=== PATIENT | female | born 1930 | race Caucasian/White ===

== ENCOUNTER 2018-08-30 16:06 | Emergency (ER) | payer MEDICARE ==
[~2018-08-30] VITALS: Ht 142.2 cm; Wt 55.3 kg
--- NOTE | 2018-08-30 16:25 | ED Abdominal Pain ---
General Chief Complaint: Abdominal/GI Problems Stated Complaint: VOMITING; ABD PAIN Source of Information: Patient, Family Exam Limitations: Other (Pt lives at [facility] [place], has some dementia, most of history obtained from daughter) History of Present Illness Date Seen by Provider: Aug 30, 2018 Time Seen by Provider: 16:10 Initial Comments The patient is a pleasant 88-year-old female who presents for evaluation of abdominal discomfort as well as nausea and vomiting which seemed to start earlier today. The patient lives at a memory care center and is a very poor story and due to her dementia. Daughter reports that the snf staff called her because she seemed very uncomfortable and was complaining of abdominal pain. She did have one episode of nausea and borderline vomiting where she spit up a little on the way to the hospital. In the past she has had a hernia repair with mesh and has had a kidney removed for renal cell carcinoma. She is joking and smiling and states that she feels fine and wants to go home. As noted be somewhat tachycardic and also has oxygen saturation of approximately 90-92% on room air. She is no history of COPD and she is denying any chest pain or shortness of breath. She has had a runny nose and cough slightly productive. She is alert, calm, and appears to be in no distress at this time. Timing/Duration: 1-3 Hours Severity/Quality: Moderate Location: Other ("lower abdomen") Radiation: No Radiation Activities at Onset: None Modifying Factors: Improves With Movement (worsens), Improves With Resting (improves) Associated Symptoms: Denies Symptoms Allergies and Home Medications Allergies Coded Allergies: No Known Drug Allergies (Unverified , 08/30/18) Patient Home Medication List Home Medication List Reviewed: Yes Review of Systems Review of Systems Constitutional: no symptoms reported EENTM: No Symptoms Reported Respiratory: No Symptoms Reported Cardiovascular: No Symptoms Reported Gastrointestinal: Abdominal Pain, Nausea, Vomiting Genitourinary: No Symptoms Reported Musculoskeletal: no symptoms reported Skin: no symptoms reported Psychiatric/Neurological: No Symptoms Reported Endocrine: No Symptoms Reported Hematologic/Lymphatic: No Symptoms Reported All Other Systems Reviewed Negative Unless Noted: Yes Past Vbkwinc-Mtnugb-Awvfeq Hx Past Med/Social Hx: Reviewed Nursing Past Med/Soc Hx Physical Exam Vital Signs Vital Signs - First Documented 08/30/18 16:10 Temp 97.7 Pulse 111 Resp 18 B/P (MAP) 144/97 (113) Pulse Ox 92 O2 Delivery Room Air Capillary Refill : Height/Weight/BMI Height: '" Weight: lbs. oz. kg; BMI Method: General Appearance: WD/WN, no apparent distress HEENT: PERRL/EOMI, normal ENT inspection, TMs normal, pharynx normal Neck: non-tender, full range of motion, supple, normal inspection Respiratory: chest non-tender, lungs clear, normal breath sounds, no respiratory distress, no accessory muscle use Cardiovascular: no JVD, no murmur, tachycardia Gastrointestinal: normal bowel sounds, non tender, soft, no organomegaly, no pulsatile mass, tenderness (mild periumbilical/suprapubic ttp, no pulsatile mass, no guarding, soft, no rigidity) Extremities: non-tender, normal inspection, no pedal edema Back: normal inspection, no CVA tenderness Pelvic: normal external exam, normal adnexa Neurologic/Psychiatric: alert, normal mood/affect Skin: normal color, warm/dry Lymphatic: no adenopathy Progress/Results/Core Measures Results/Orders Lab Results Laboratory Tests Test 08/30/18 16:19 08/30/18 16:33 Range/Units White Blood Count 9.2 4.3-11.0 10^3/uL Red Blood Count 4.42 4.35-5.85 10^6/uL Hemoglobin 14.2 11.5-16.0 G/DL Hematocrit 43 35-52 % Mean Corpuscular Volume 97 80-99 FL Mean Corpuscular Hemoglobin 32 25-34 PG Mean Corpuscular Hemoglobin Concent 33 32-36 G/DL Red Cell Distribution Width 22.8 H 10.0-14.5 % Platelet Count 500 H 130-400 10^3/uL Mean Platelet Volume 9.4 7.4-10.4 FL Neutrophils (%) (Auto) 72 42-75 % Lymphocytes (%) (Auto) 20 12-44 % Monocytes (%) (Auto) 6 0-12 % Eosinophils (%) (Auto) 0 0-10 % Basophils (%) (Auto) 1 0-10 % Neutrophils # (Auto) 66.0 H 1.8-7.8 X 10^3 Lymphocytes # (Auto) 1.9 1.0-4.0 X 10^3 Monocytes # (Auto) 0.6 0.0-1.0 X 10^3 Eosinophils # (Auto) 0.0 0.0-0.3 10^3/uL Basophils # (Auto) 0.1 0.0-0.1 10^3/uL Sodium Level 146 H 135-145 MMOL/L Potassium Level 3.1 L 3.6-5.0 MMOL/L Chloride Level 104 98-107 MMOL/L Carbon Dioxide Level 21 21-32 MMOL/L Anion Gap 21 H 5-14 MMOL/L Blood Urea Nitrogen 18 7-18 MG/DL Creatinine 0.81 0.60-1.30 MG/DL Estimat Glomerular Filtration Rate > 60 BUN/Creatinine Ratio 22 Glucose Level 137 H 70-105 MG/DL Calcium Level 9.5 8.5-10.1 MG/DL Corrected Calcium 9.3 8.5-10.1 MG/DL Total Bilirubin 0.8 0.1-1.0 MG/DL Aspartate Amino Transf (AST/SGOT) 15 5-34 U/L Alanine Aminotransferase (ALT/SGPT) 8 0-55 U/L Alkaline Phosphatase 130 40-136 U/L Troponin I < 0.30 <0.30 NG/ML Pro-B-Type Natriuretic Peptide 708.6 H <75.0 PG/ML Total Protein 8.0 6.4-8.2 GM/DL Albumin 4.2 3.2-4.5 GM/DL Lipase 11 8-78 U/L Urine Color YELLOW Urine Clarity CLEAR Urine pH 5.0 5-9 Urine Specific [place] >1.030 1.016-1.022 Urine Protein 1+ H NEGATIVE Urine Glucose (UA) NEGATIVE NEGATIVE Urine Ketones 1+ H NEGATIVE Urine Nitrite NEGATIVE NEGATIVE Urine Bilirubin 1+ H NEGATIVE Urine Urobilinogen 1.0 NORMAL MG/DL Urine Leukocyte Esterase NEGATIVE NEGATIVE Urine RBC (Auto) TRACE H NEGATIVE Urine RBC 5-10 H /HPF Urine WBC 0-2 /HPF Urine Squamous Epithelial Cells 2-5 /HPF Urine Crystals NONE /LPF Urine Bacteria FEW H /HPF Urine Casts PRESENT /LPF Urine Hyaline Casts 5-10 H /LPF Urine Granular Casts 0-2 H /LPF Urine Mucus SMALL H /LPF Urine Culture Indicated NO My Orders Orders - PATY ESCOBAR DO Comprehensive Metabolic Panel (08/30/18 16:18) Lipase (08/30/18 16:18) Ua Culture If Indicated (08/30/18 16:18) Ed Iv/Invasive Line Start (08/30/18 16:18) Cbc With Automated Diff (08/30/18 16:18) Ct Abdomen/Pelvis W (08/30/18 16:18) Chest 1 View Ap/Pa Only (08/30/18 16:18) Probnp Fs (08/30/18 16:18) Troponin I (08/30/18 16:18) Nothing By Mouth (08/31/18 Breakfast) Ekg Tracing (08/30/18 16:30) Iohexol Injection (Omnipaque 350 Mg/Ml 1 (08/30/18 17:00) Received Contrast (Hold Metformin- Contr (08/30/18 17:00) Sodium Chloride Flush (Catheter Flush Sy (08/30/18 17:00) Ns (Ivpb) (Sodium Chloride 0.9% Ivpb Bag (08/30/18 17:00) Potassium Chloride Powder (Klor Con 20 M (08/30/18 17:00) Potassium Cl 10meq/50ml Ivpb (Kcl 10 Meq (08/30/18 18:00) Ns Iv 1000 Ml (Sodium Chloride 0.9%) (08/30/18 17:55) Normal Saline 1l Iv (08/30/18 18:15) Medications Given in ED Current Medications Medications Dose Ordered Sig/Jennifer Route Start Time Stop Time Status Last Admin Dose Admin Iohexol 100 ml ONCE ONCE IV 08/30/18 17:00 08/30/18 17:01 DC 08/30/18 17:12 100 ML Sodium Chloride 10 ml NEEDED PRN IV 08/30/18 17:00 08/30/18 17:13 10 ML Sodium Chloride 100 ml ONCE ONCE IV 08/30/18 17:00 08/30/18 17:01 DC 08/30/18 17:13 100 ML Vital Signs/I&O 08/30/18 16:10 Temp 97.7 Pulse 111 Resp 18 B/P (MAP) 144/97 (113) Pulse Ox 92 O2 Delivery Room Air Progress Progress Note : Progress Note @8824 - Patient and family updated on concern for sigmoid mass causing obstruction. Explained that the patient needed to be transferred to a facility with surgical capabilities and possibly a colorectal surgeon. The family strongly prefers the patient to be transferred to [facility] in [place]. I spoke with the transfer service at this time and they state that they will get the appropriate physician on the line and give me a call back. @1809 - Dr. Marielos Jane accepts the transfer to [facility]. Comment @1641 - Sinus tachycardia, rate of 102, normal axis, no acute ischemic findings noted, no STEMI, reviewed and interpreted by myself Diagnostic Imaging Comments [facility] [place], [place] NAME: KIA REDD [facility] REC#: [id number] PT STATUS: REG ER : 1930 PHYSICIAN: PATY ESCOBAR DO ADMIT DATE: 08/30/18/ER FS Draft Date of Exam:08/30/18 CT ABDOMEN/PELVIS W PROCEDURE: CT abdomen and pelvis with contrast. TECHNIQUE: Multiple contiguous axial images were obtained through the abdomen and pelvis after administration of intravenous contrast. Auto Exposure Controls were utilized during the CT exam to meet ALARA standards for radiation dose reduction. INDICATION: Abdominal pain, nausea, vomiting, history of renal cell carcinoma of the left kidney. Previous left nephrectomy, hernia repair, lumbar spine surgery, cholecystectomy, and appendectomy. FINDINGS: The lung bases are clear. Coronary artery calcifications are present. Large hiatal hernia is present. The gallbladder is absent. Mild ductal dilatation is present. The ducts can be followed all the way to the duodenum with no obstructing masses. The pancreas is atrophied. The spleen has several small cysts and some calcified granulomas. The left kidney is absent. No masses are seen in the region of the renal bed. There is no abnormal adenopathy. Right kidney is normal. Urinary bladder appears normal. There is some eventration of the abdominal wall. The muscle is thinned but still intact. Diverticula are present in the colon. In the sigmoid colon, best seen on image [id number], there is a questionable mass in the sigmoid colon. The colon above this is dilated with air-fluid levels. The colon measures up to 8.6 cm in diameter. The small bowel loops appear unremarkable. No ascites, free air, or abnormal adenopathy is present. IMPRESSION: 1. There is a questionable obstructing mass in the sigmoid colon. 2. Diverticulosis. 3. There is very large hiatal hernia with most of the stomach above the diaphragm. 4. Coronary artery disease. Dictated on workstation # [id number] Dict: 08/30/18 1725 Trans: 08/30/18 1735 [id number] Interpreted by: LIBAN MCCOY MD Electronically signed by: Departure Impression Primary Impression: Colonic mass Additional Impressions: Hypokalemia Abdominal pain Nausea and vomiting Disposition: XFER SHT-TRM HOSP Condition: Stable Transfer Time Spoke to Accepting Phy: 18:[address] Marielos Jane at [facility] accepts the transfer Transfer Time: 18:05 Transfer Facility: [facility] Method of Transfer: EMS Departure-Patient Inst. Referrals: QUYEN LIZ MD (PCP/Family) Primary Care Physician PATY ESCOBAR DO Aug 30, 2018 16:25
[2018-08-30 16:28] LABS: EOSINOPHILS % (AUTO) 0 % (0-10); HEMATOCRIT 43 % (35-52); HEMOGLOBIN 14.2 G/DL (11.5-16.0); LYMPHOCYTES % (AUTO) 20 % (12-44); MEAN CORPUSCULAR HEMOGLOBIN 32 PG (25-34); MEAN CORPUSCULAR HGB CONC 33 G/DL (32-36); MEAN CORPUSCULAR VOLUME 97 FL (80-99); MEAN PLATELET VOLUME 9.4 FL (7.4-10.4); MONOCYTES % (AUTO) 6 % (0-12); NEUTROPHILS % (AUTO) 72 % (42-75); PLATELET COUNT 500 10^3/uL (130-400); RED CELL DISTRIBUTION WIDTH 22.8 % (10.0-14.5); WHITE BLOOD COUNT 9.2 10^3/uL (4.3-11.0)
[2018-08-30 16:29] LABS: BASOPHILS # (AUTO) 0.1 10^3/uL (0.0-0.1); BASOPHILS % (AUTO) 1 % (0-10); LYMPHOCYTES # (AUTO) 1.9 X 10^3 (1.0-4.0); MONOCYTES # (AUTO) 0.6 X 10^3 (0.0-1.0)
[2018-08-30 16:46] LABS: ALANINE AMINOTRANSFERASE 8 U/L (0-55); ALBUMIN 4.2 GM/DL (3.2-4.5); ALKALINE PHOSPHATASE 130 U/L (40-136); BILIRUBIN,TOTAL 0.8 MG/DL (0.1-1.0); BUN/CREATININE RATIO 22; CALCIUM 9.5 MG/DL (8.5-10.1); CARBON DIOXIDE 21 MMOL/L (21-32); CHLORIDE 104 MMOL/L (98-107); CREATININE SERUM 0.81 MG/DL (0.60-1.30); GFR ESTIMATED > 60; GLUCOSE 137 MG/DL (70-105); POTASSIUM 3.1 MMOL/L (3.6-5.0); SODIUM 146 MMOL/L (135-145)
[2018-08-30 16:47] LABS: LIPASE 11 U/L (8-78)
--- NOTE | 2018-08-30 16:54 | Diagnostic Imaging Report ---
Examination: Chest one view. History: Abdominal pain nausea vomiting. Findings: No comparison available. There is a moderate-sized hernia. There is bibasilar atelectasis with small lung volumes. No pneumothorax. No edema or pneumonia. Heart size is normal. Limited views of the upper abdomen show the colon to be dilated. Impression: 1. Mild bibasilar atelectasis. 2. Moderate size hiatal hernia. 3. Dilated colon. Dictated by: Dictated on workstation # [id number]
[2018-08-30] MEDS ORDERED: HOLD METFORMIN - RECEIVED CONTRAST 20 ML VIAL IV SCH (17:00)
[2018-08-30] MEDS ORDERED: NS 100 ML (IVPB) BAG IV ONE (17:00)
[2018-08-30] MEDS ORDERED: IOHEXOL 350 MG/ML 100 ML (OMNIPAQUE 350) VIAL IV ONE (17:00)
[2018-08-30] MEDS ORDERED: KCL 20 MEQ POWDER FOR ORAL SOLUTION PO ONE (17:00)
[2018-08-30] MEDS ORDERED: CATHETER FLUSH 10 ML SYR IV PRN (17:00)
[2018-08-30 17:04] LABS: CLARITY,URINE CLEAR; COLOR,URINE YELLOW
[2018-08-30 17:05] LABS: BACTERIA,URINE FEW /HPF; BILIRUBIN,URINE 1+ (NEGATIVE); GLUCOSE, URINE (UA) NEGATIVE (NEGATIVE); GRANULAR CASTS,URINE 0-2 /LPF; KETONES,URINE 1+ (NEGATIVE); LEUKOCYTE ESTERASE ,URINE NEGATIVE (NEGATIVE); NITRITE,URINE NEGATIVE (NEGATIVE); PROTEIN,URINE 1+ (NEGATIVE); WBC,URINE 0-2 /HPF
--- NOTE | 2018-08-30 17:36 | Diagnostic Imaging Report ---
PROCEDURE: CT abdomen and pelvis with contrast. TECHNIQUE: Multiple contiguous axial images were obtained through the abdomen and pelvis after administration of intravenous contrast. Auto Exposure Controls were utilized during the CT exam to meet ALARA standards for radiation dose reduction. INDICATION: Abdominal pain, nausea, vomiting, history of renal cell carcinoma of the left kidney. Previous left nephrectomy, hernia repair, lumbar spine surgery, cholecystectomy, and appendectomy. FINDINGS: The lung bases are clear. Coronary artery calcifications are present. Large hiatal hernia is present. The gallbladder is absent. Mild ductal dilatation is present. The ducts can be followed all the way to the duodenum with no obstructing masses. The pancreas is atrophied. The spleen has several small cysts and some calcified granulomas. The left kidney is absent. No masses are seen in the region of the renal bed. There is no abnormal adenopathy. Right kidney is normal. Urinary bladder appears normal. There is some eventration of the abdominal wall. The muscle is thinned but still intact. Diverticula are present in the colon. In the sigmoid colon, best seen on image 67-68, there is a questionable mass in the sigmoid colon. The colon above this is dilated with air-fluid levels. The colon measures up to 8.6 cm in diameter. The small bowel loops appear unremarkable. No ascites, free air, or abnormal adenopathy is present. IMPRESSION: 1. There is a questionable obstructing mass in the sigmoid colon. 2. Diverticulosis. 3. There is very large hiatal hernia with most of the stomach above the diaphragm. 4. Coronary artery disease. Dictated by: Dictated on workstation # [id number]
[2018-08-30] MEDS ORDERED: NS IV 1000 ML 1,000 ML ONE (17:55)
[2018-08-30] MEDS ORDERED: POTASSIUM CL 10MEQ/50ML IVPB 50 ML IV SCH (18:00)
[2018-08-30] MEDS ORDERED: NS IV 1000 ML 1,000 ML IV SCH (18:15)
[2018-08-30 19:09] VITALS: BP 134/90
[2018-08-31 11:30] LABS: NEUTROPHILS # (AUTO) 6.6 X 10^3 (1.8-7.8)
== END 2018-08-30 19:16 | disposition short-term general hospital (02) ==
LOC: ER FS 16:08
DX: K63.89 Other specified diseases of intestine (principal); E87.6 Hypokalemia; R11.2 Nausea with vomiting, unspecified; F03.90 Unspecified dementia, unspecified severity, without behavioral disturbance, psychotic disturbance, mood disturbance, and anxiety; Z98.890 Other specified postprocedural states; Z85.528 Personal history of other malignant neoplasm of kidney
CPT/HCPCS: 36415; 71045; 74177; 80053; 81000; 83690; 83880; 84484; 85025; 93005; 96361; 96365

== ENCOUNTER 2019-01-20 19:45 | Emergency (ER) | payer MEDICARE ==
[~2019-01-20] VITALS: Ht 157.5 cm; Wt 58.2 kg
--- NOTE | 2019-01-20 19:56 | ED Hip Pain/Injury ---
General Chief Complaint: Hip/Pelvic Problems Stated Complaint: R HIP PAIN Source: patient, family (son and daughter), EMS, longterm records Exam Limitations: clinical condition (dementia) History of Present Illness Date Seen by Provider: Jan 20, 2019 Time Seen by Provider: 19:36 Initial Comments Patient resists ER by EMS from longterm with chief complaint that she slid out of her Marlyn chair onto the floor. She was complaining of some pain in her right hip. By time EMS brought her to the ER she said she was out of pain. She does not take routine pain medicines but she does have a tramadol she can take at night if she needs it as well as Tylenol. She is on hospice. Family states that she did not think should be a candidate for any kind of surgical hip repair but they do still want an x-ray fractured. The patient's denying any pain at this time and has not had anything for pain. She's had no dysuria fever chills nausea vomiting fevers. She denies striking her head, loss of consciousness or use of blood thinners. Allergies and Home Medications Allergies Coded Allergies: No Known Drug Allergies (Unverified , 08/30/18) Patient Home Medication List Home Medication List Reviewed: Yes Review of Systems Constitutional: No chills, No diaphoresis EENTM: No ear discharge, No ear pain Respiratory: No cough, No short of breath Cardiovascular: No chest pain, No edema Gastrointestinal: No abdominal pain, No constipation, No diarrhea Genitourinary: No discharge, No dysuria Musculoskeletal: see HPI; No back pain; joint pain All Other Systems Reviewed Negative Unless Noted: Yes Past Rwrglnw-Lpvppj-Nvbpta Hx Patient Social History Alcohol Use: Denies Use Recreational Drug Use: No Smoking Status: Never a Smoker Physical Exam Vital Signs Vital Signs - First Documented 01/20/19 19:51 Temp 36.6 Pulse 77 Resp 16 B/P (MAP) 119/71 (87) O2 Delivery Room Air Capillary Refill : Height, Weight, BMI Height: '" Weight: lbs. oz. kg; BMI Method: General Appearance: No Apparent Distress, Thin HEENT: PERRL/EOMI, TMs Normal, Normal ENT Inspection, Pharynx Normal, Moist Mucous Membranes Neck: Full Range of Motion, Normal Inspection Cardiovascular: Regular Rate, Rhythm, Normal Peripheral Pulses Respiratory: Chest Non Tender, No Accessory Muscle Use, No Respiratory Distress Gastrointestinal: Normal Bowel Sounds, Non Tender, Soft Extremity: Normal Capillary Refill, Normal Inspection, Normal Range of Motion, Non Tender, No Pedal Edema, Other (normal active range of motion of bilateral lower extremities at the hip knee and ankle. Nontender to palpation. No ecchymoses or swelling or erythema.) Neurologic/Psychiatric: Alert, Normal Mood/Affect, tester armature or fields II-XII Norm as Tested, Other (oriented to person and place but not time.) Skin: Normal Color, Warm/Dry Progress/Results/Core Measures Results/Orders My Orders Orders - PAN JEWLEL Pelvis With Right Hip 2-3 View (01/20/19 19:50) Vital Signs/I&O 01/20/19 19:51 Temp 36.6 Pulse 77 Resp 16 B/P (MAP) 119/71 (87) O2 Delivery Room Air Progress Progress Note : Time: 19:54 Progress Note Pelvis with 2-3 right hip images. She does not want anything for pain right now. Diagnostic Imaging Diagonstic Imaging: Xray Plain Films/CT/US/NM/MRI: pelvis, hip (right) Comments No acute osseous abnormality. Previous gamma nail on the contralateral side seen. What appears to be kyphoplasty the spine and wedding ring overlying the abdomen. Nonspecific bowel gas pattern. Solitary surgical clip noted. NAME: KIA REDD [facility] REC#: [id number] PT STATUS: REG ER : 1930 PHYSICIAN: PAN JEWELL MD ADMIT DATE: 01/20/19/ER FS Draft POSDate of Exam:01/20/19 PELVIS WITH RIGHT HIP 2-3 VIEW EXAMINATION: Pelvis, single view. Right hip, 2 additional views. COMPARISON: CT abdomen and pelvis August 30, 2018. HISTORY: 88-year-old female, right hip pain after fall. FINDINGS: The bones are demineralized. There is an intramedullary hannah with dynamic fixation screw in the left proximal femur traversing a left intertrochanteric femur fracture. The pubic symphysis and sacroiliac joints are normally aligned. Prior kyphoplasty changes of L3. There are advanced degenerative changes of the lower lumbar spine. The right hip is not dislocated. There is no identified acute fracture. IMPRESSION: 1. Bone demineralization without identified acute fracture. 2. Unremarkable appearance of the right hip joint. 3. 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 Dictated on workstation # [id number] Dict: 01/20/192012 Trans: 01/20/192024 [facility] [id number] Interpreted by: DOC STOCKTON MD Electronically signed by: Reviewed: Reviewed by Me Departure Impression Primary Impression: Fall Qualified Codes: W19.XXXA - Unspecified fall, initial encounter Additional Impression: Contusion of right hip, initial encounter Disposition: HOME, SELF-CARE Condition: Stable Departure-Patient Inst. Decision time for Depature: 20:11 Patient Instructions: Hip Pain (DC) Add. Discharge Instructions: Follow-up with primary care if hip pain returns. Tylenol and ibuprofen as necessary. All discharge instructions reviewed with patient and/or family. Voiced understanding. PAN JEWELL Jan 20, 2019 19:56 POS
--- NOTE | 2019-01-20 20:14 | NUR ---
[facility] CONTACTED AND INFORMED THAT PT IS READY TO RETURN HOME.
--- NOTE | 2019-01-20 20:24 | NUR ---
EVERETT FROM [facility] CALLED AND REQUESTED INFORMATION ON PT. EVERETT WAS INFORMED THAT PT WAS ABLE TO RETURN TO FACILITY. EVERETT WAS INFORMED THAT THE FACILITY WOULD NEED TO CALL FOR RETURN TRANSPORT VIA EMS TO FACILITY AND THAT THE FACILITY WOULD NEED TO SIGN THE FORM STATING A MEDICAL NECESSITY FOR RETURN VIA EMS.
--- NOTE | 2019-01-20 20:26 | Diagnostic Imaging Report ---
EXAMINATION: Pelvis, single view. Right hip, 2 additional views. COMPARISON: CT abdomen and pelvis August 30, 2018. HISTORY: 88-year-old female, right hip pain after fall. FINDINGS: The bones are demineralized. There is an intramedullary hannah with dynamic fixation screw in the left proximal femur traversing a left intertrochanteric femur fracture. The pubic symphysis and sacroiliac joints are normally aligned. Prior kyphoplasty changes of L3. There are advanced degenerative changes of the lower lumbar spine. The right hip is not dislocated. There is no identified acute fracture. IMPRESSION: 1. Bone demineralization without identified acute fracture. 2. Unremarkable appearance of the right hip joint. 3. 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 Dictated by: Dictated on workstation # [id number]
--- NOTE | 2019-01-20 20:28 | NUR ---
TARAN ESPARZA FROM [facility] CALLED REQUESTING INFORMATION ON PT CONDITION. SHE WAS INFORMED THAT PT WAS STABLE AND ABLE TO RETURN TO FACILITY.
[2019-01-20 20:38] VITALS: BP 116/74
--- OUTSIDE RECORDS SUMMARY | 2019-02-14 12:00 | XMS REPORT | Continuity of Care Document ---
Author Organization Unknown Address Unknown Phone Unavailable Allergies Active Description Code Type Severity Reaction Onset Reported/Identified Relationship to Patient Clinical Status Yes No Allergy Information Available [id number] Drug Allergy Unknown N/A 019 Yes No Known Drug Allergies [id number] Drug Allergy Unknown N/A 08/30/2018 Medications There is no data. Problems Date Dx Coded Attending Type Code Diagnosis Diagnosed By 08/30/2018 LUZ NEWMAN DO Ot E87. 6 HYPOKALEMIA 08/30/2018 LUZ NEWMAN DO Ot F03. 90 UNSPECIFIED DEMENTIA WITHOUT BEHAVIORAL 08/30/2018 LUZ NEWMAN DO Ot K63. 89 OTHER SPECIFIED DISEASES OF INTESTINE 08/30/2018 LUZ NEWMAN DO Ot R10. 33 PERIUMBILICAL PAIN 08/30/2018 LUZ NEWMAN DO Ot R11. 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 6 HYPOKALEMIA 09/05/2018 LUZ NEWMAN DO Ot F03. 90 UNSPECIFIED DEMENTIA WITHOUT BEHAVIORAL 09/05/2018 LUZ NEWMAN DO Ot K63. 89 OTHER SPECIFIED DISEASES OF INTESTINE 09/05/2018 LUZ NEWMAN DO Ot R10. 33 PERIUMBILICAL PAIN 09/05/2018 LUZ NEWMAN DO Ot R11. 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 09/05/2018 LUZ NEWMAN DO Ot Z98.890 OTHER SPECIFIED POSTPROCEDURAL STATES 01/20/2019 PAN JEWELL MD Ot M25.551 PAIN IN RIGHT HIP 01/20/2019 PAN JEWELL MD Ot S70.01XA CONTUSION OF RIGHT HIP, INITIAL ENCOUNTE 01/20/2019 PAN JEWELL MD Ot W07.XXXA FALL FROM CHAIR, INITIAL ENCOUNTER 01/20/2019 PAN JEWELL MD Ot Y92.[address] IN SHELTER PLACE 01/25/2019 PAN JEWELL MD, Ot M25.551 PAIN IN RIGHT HIP 01/25/2019 PAN JEWELL MD, Ot S70.01XA CONTUSION OF RIGHT HIP, INITIAL ENCOUNTE 01/25/2019 PAN JEWELL MD Ot W07.XXXA FALL FROM CHAIR, INITIAL ENCOUNTER 01/25/2019 PAN JEWELL MD Ot Y92.[address] IN SHELTER PLACE Procedures There is no data. Results Test Result Range Complete blood count (CBC) with automate d white blood cell (WBC) differential - 08/30/18 16:19 Blood leukocytes automated count (number/volume) 9.2 10*3/uL 4.3-11.0 Blood erythrocytes automated count (number/volume) 4.42 10*6/uL 4.35-5.85 Venous blood hemoglobin measurement (mass/volume) 14.2 g/dL 11.5-16.0 Blood hematocrit (volume fraction) 43 % 35-52 Automated erythrocyte mean corpuscular volume 97 [ foz_us] 80-99 Automated erythrocyte mean corpuscular h emoglobin (mass per erythrocyte) 32 pg 25-34 Automated erythrocyte mean corpuscular h emoglobin concentration measurement (mass/volume) 33 g/dL 32-36 Automated erythrocyte distribution width ratio 22. 8 % 10.0- 14.5 Automated blood platelet count (count/volume) 500 10*3/uL 130-400 Automated blood platelet mean volume measurement 9.4 [foz_us] 7.4-10.4 Automated blood neutrophils/100 leukocytes 72 % 42-75 Automated blood lymphocytes/100 leukocytes 20 % 12-44 Blood monocytes/100 leukocytes 6 % 0-12 Automated blood eosinophils/100 leukocytes 0 % 0-10 Automated blood basophils/100 leukocytes 1 % 0-10 Blood neutrophils automated count (number/volume) 6.6 10*3 1.8-7.8 Blood lymphocytes automated count (number/volume) 1.9 10*3 1.0-4.0 Blood monocytes automated count (number/volume) 0. 6 10*3 0.0-1.0 Automated eosinophil count 0.0 10*3/uL 0 .0-0.3 Automated blood basophil count (count/volume) 0.1 10*3/uL 0.0-0.1 Comprehensive metabolic panel - 08/30/18 16:19 Serum or plasma sodium measurement (moles/volume) 146 mmol/L 135-145 Serum or plasma potassium measurement (moles/volume) 3.1 mmol/L 3.6-5.0 Serum or plasma chloride measurement (moles/volume) 104 mmol/L 98-107 Carbon dioxide 21 mmol/L 21-32 Serum or plasma anion gap determination (moles/volume) 21 mmol/L 5-14 Serum or plasma urea nitrogen measurement (mass/volume ) 18 mg/dL 7-18 Serum or plasma creatinine measurement (mass/volume) 0.81 mg/dL 0.60-1.30 Serum or plasma urea nitrogen/creatinine mass ratio 22 NRG Serum or plasma creatinine measurement w ith calculation of estimated glomerular filtration rate > NRG Serum or plasma glucose measurement (mass/volume) 137 mg/dL 70-105 Serum or plasma calcium measurement (mass/volume) 9.5 mg/dL 8.5-10.1 Serum or plasma total bilirubin measurement (mass/volu me) 0.8 mg/dL 0.1-1.0 Serum or plasma alkaline phosphatase renee surement (enzymatic activity/volume) 130 U/L 40-136 Serum or plasma aspartate aminotransfera se measurement (enzymatic activity/volume) 15 U/L 5-34 Serum or plasma alanine aminotransferase measurement (enzymatic activity/volume) 8 U/L 0-55 Serum or plasma protein measurement (mass/volume) 8.0 g/dL 6.4-8.2 Serum or plasma albumin measurement (mass/volume) 4.2 g/dL 3.2-4.5 CALCIUM CORRECTED 9.3 mg/dL 8.5-10.1 Lipase - 08/30/18 16:19 Lipase 11 U/L 8-78 Serum or plasma troponin i.cardiac measu rement (mass/volume) - 08/30/18 16:19 Serum or plasma troponin i.cardiac measurement (mass/v olume) < ng/mL <0.30 PROBNP FS - 08/30/18 16:19 PROBNP FS 708.6 pg/mL <75.0 Complete urinalysis with reflex to cultu re - 08/30/18 16:33 Urine color determination YELLOW NRG Urine clarity determination CLEAR NR G Urine pH measurement by test strip 5.0 5-9 Specific gravity of urine by test strip > 1.016-1.022 Urine protein assay by test strip, semi-quantitative 1+ NEGATIVE Urine glucose detection by automated test strip NE GATIVE NEGATIVE Erythrocytes detection in urine sediment by light micr oscopy TRACE NEGATIVE Urine ketones detection by automated test strip 1+ NEGATIVE Urine nitrite detection by test strip NEGATIVE NEGATIVE Urine total bilirubin detection by test strip 1+ NEGATIVE Urine urobilinogen measurement by automated test strip (mass/volume) 1.0 mg/dL NORMAL Urine leukocyte esterase detection by dipstick NEG ATIVE NEGATIVE Automated urine sediment erythrocyte cou nt by microscopy (number/high power field) [HPF] NRG Automated urine sediment leukocyte count by microscopy (number/high power field) [HPF] NRG Bacteria detection in urine sediment by light microsco py FEW NRG Squamous epithelial cells detection in u rine sediment by light microscopy 2-5 NRG Crystals detection in urine sediment by light microsco py NONE NRG Casts detection in urine sediment by light microscopy PRESENT NRG Mucus detection in urine sediment by light microscopy SMALL NRG Complete urinalysis with reflex to culture NO NRG Hyaline casts detection in urine sediment by light codi roscopy 5-10 NRG Granular casts detection in urine sediment by light mi croscopy 0-2 NRG CBC - 09/13/18 10:48 WHITE BLOOD CELL COUNT 4.7 Thousand/uL 3 .8-10.8 RED BLOOD CELL COUNT 2.87 Million/uL 3.8 0-5.10 HEMOGLOBIN 9.2 g/dL 11.7-15.5 HEMATOCRIT 28.7 % 35.0-45.0 MCV 100.0 fL 80.0-100.0 MCH 32.1 pg 27.0-33.0 MCHC 32.1 g/dL 32.0-36.0 RDW 19.5 % 11.0-15.0 PLATELET COUNT 397 Thousand/uL 140-400 MPV 9.7 fL 7.5-12.5 ABSOLUTE NEUTROPHILS 3671 cells/uL 1500- 7800 ABSOLUTE LYMPHOCYTES 545 cells/uL 850-39 00 ABSOLUTE MONOCYTES 371 cells/uL 200-950 ABSOLUTE EOSINOPHILS 61 cells/uL 15-500 ABSOLUTE BASOPHILS 52 cells/uL 0-200 NEUTROPHILS 78.1 % NRG LYMPHOCYTES 11.6 % NRG MONOCYTES 7.9 % NRG EOSINOPHILS 1.3 % NRG BASOPHILS 1.1 % NRG Encounters ACCT No. Visit Date/Time Discharge Status Pt. Type Provider Facility Loc./Unit Complaint [id number] 09/13/2018 17:45:00 09/13/2018 23:59: 59 [facility] Outpatient [facility] [place]dugo [facility] [id number] 09/13/2018 17:45:00 Document Registration [id number] 01/20/2019 19:51:00 20:38:00 DIS Emergency PAN JEWELL MD [facility] FS R HIP PAIN [id number] 08/30/2018 16:08:00 19:16:00 DIS Emergency LUZ NEWMAN DO [facility] FS VOMITING; ABD PAIN
== END 2019-01-20 20:38 | disposition home or self-care (01) ==
LOC: EDUNIT# 19:45 → ER FS 19:51
DX: S70.01XA Contusion of right hip, initial encounter (principal); W07.XXXA Fall from chair, initial encounter; Y92.129 Unspecified place in nursing home as the place of occurrence of the external cause
CPT/HCPCS: 73502